=== PATIENT | male | born 1985 | race African-American/Black ===

== ENCOUNTER 2017-03-16 12:34 | Emergency (ER) | payer BC, SELFPAY ==
[2017-03-16] MEDS ORDERED: Nitroglycerin 0.4 MG TAB (25 Tab Bottle) ONE (13:08)
[2017-03-16 13:12] LABS: #Basophils 0.1 thou/uL (0.0-0.2); #Eosinphils 0.1 thou/uL (0.0-0.7); #Lymphocytes 1.5 thou/uL (1.20-3.40); #Monocytes 0.4 thou/uL (0.11-0.59); #Neutrophils 2.7 thou/uL (1.40-6.50); %Eosinophils 1.5 % (0.0-10.0); %Lymphocytes 31.6 % (21.0-51.0); %Monocytes 8.1 % (0.0-10.0); %Neutrophils 56.8 % (42.0-75.0); Hemoglobin 15.3 g/dL (14.0-18.0); Mean Corpuscular HGB CONC 33.2 g/dL (32.0-36.0); Mean Corpuscular Hemoglobin 31.3 pg (27.0-31.0); Mean Corpuscular Volume 94.3 fl (80.0-94.0); Mean Platelet Volume 7.3 fL (7.4-10.4); Platelet Count 179 thou/uL (130-400); RBC Distribution Width 10.8 % (11.5-14.5); Red Blood Cell (RBC) Count 4.89 mill/uL (4.70-6.10); White Blood Cell (WBC) Count 4.8 thou/uL (4.8-10.8)
[2017-03-16 13:27] LABS: ALT (SGPT) 20 U/L (8-55); AST (SGOT) 22 U/L (5-34); Albumin 4.5 g/dL (3.5-5.0); Alkaline Phosphatase 58 U/L (40-150); Anion Gap 15 mmol/L (10-20); BUN (Urea Nitrogen) 14 mg/dL (8.9-20.6); Bilirubin, Total 1.3 mg/dL (0.2-1.2); Calc. Creatinine Clearance 0 mL/min (70-130); Calcium 10.1 mg/dL (7.8-10.44); Carbon Dioxide 27 mmol/L (22-29); Chloride 101 mmol/L (98-107); Estimated GFR-MDRD Greater than 90; Globulin 3.8 g/dL (2.4-3.5); Glucose 89 mg/dL (70-105); Potassium 4.9 mmol/L (3.5-5.1); Protein, Total 8.3 g/dL (6.0-8.3); Sodium 138 mmol/L (136-145)
[2017-03-16 13:28] LABS: CKMB 0.6 ng/mL (0-6.6); Troponin I Less than 0.010 ng/mL (< 0.028)
[2017-03-16] MEDS ORDERED: Ketorolac Tromethamine 30 MG/ML VIAL ONE (14:10)
--- NOTE | 2017-03-16 17:30 | RAD ---
PORTABLE CHEST 03/16/17 An AP portable film at 1245 shows a normal sized heart and clear lungs. There is no infiltrate, effus ion, or pneumothorax. There is no vascular congestion, edema or pleural change. IMPRESSION: No acute thoracic finding. POS: HOME
== END 2017-03-16 14:50 | disposition home or self-care (01) ==
LOC: BURERS 12:34
DX: R07.2 Precordial pain (principal); F17.210 Nicotine dependence, cigarettes, uncomplicated
CPT/HCPCS: 71010; 80053; 82553; 84484; 85025; 85379; 93005; 96374; J1885

== ENCOUNTER 2017-03-17 02:53 | Emergency (ER) | payer SELFPAY ==
[2017-03-17] MEDS ORDERED: Nitroglycerin 2% Ointment 1 INCH/1 GM Packet ONE (03:16)
[2017-03-17] MEDS ORDERED: Tenecteplase 50 MG - STEMI KIT ONE (03:23)
[2017-03-17 03:38] LABS: #Basophils 0.1 thou/uL (0.0-0.2); #Eosinphils 0.1 thou/uL (0.0-0.7); #Lymphocytes 2.7 thou/uL (1.20-3.40); #Monocytes 0.5 thou/uL (0.11-0.59); #Neutrophils 3.2 thou/uL (1.40-6.50); %Basophils 2.2 % (0.0-1.0); %Eosinophils 2.2 % (0.0-10.0); %Lymphocytes 40.1 % (21.0-51.0); %Monocytes 7.9 % (0.0-10.0); %Neutrophils 47.6 % (42.0-75.0); Hemoglobin 14.7 g/dL (14.0-18.0); Mean Corpuscular HGB CONC 33.1 g/dL (32.0-36.0); Mean Corpuscular Hemoglobin 31.2 pg (27.0-31.0); Mean Corpuscular Volume 94.3 fl (80.0-94.0); Mean Platelet Volume 8.4 fL (7.4-10.4); Platelet Count 173 thou/uL (130-400); Red Blood Cell (RBC) Count 4.71 mill/uL (4.70-6.10); White Blood Cell (WBC) Count 6.7 thou/uL (4.8-10.8)
[2017-03-17 03:49] LABS: ALT (SGPT) 16 U/L (8-55); AST (SGOT) 16 U/L (5-34); Albumin 4.2 g/dL (3.5-5.0); Alkaline Phosphatase 61 U/L (40-150); Anion Gap 13 mmol/L (10-20); BUN (Urea Nitrogen) 15 mg/dL (8.9-20.6); Bilirubin, Total 0.5 mg/dL (0.2-1.2); Calc. Creatinine Clearance 0 mL/min (70-130); Calcium 9.4 mg/dL (7.8-10.44); Carbon Dioxide 27 mmol/L (22-29); Chloride 104 mmol/L (98-107); Estimated GFR-MDRD Greater than 90; Globulin 3.4 g/dL (2.4-3.5); Glucose 88 mg/dL (70-105); Potassium 3.8 mmol/L (3.5-5.1); Protein, Total 7.6 g/dL (6.0-8.3); Sodium 140 mmol/L (136-145)
[2017-03-17 03:51] LABS: CKMB 0.5 ng/mL (0-6.6); Troponin I Less than 0.010 ng/mL (< 0.028)
[2017-03-17 04:00] LABS: INR-International Normal Ratio 0.9; Prothrombin Time 12.6 SEC (12.0-14.7)
[2017-03-17 04:01] LABS: PTT 27.8 SEC (22.9-36.1)
--- NOTE | 2017-03-17 07:19 | RAD ---
PORTABLE CHEST: Date: 03/17/17 An AP portable film at 0311 hours is compared with an 03/16/17 study. FINDINGS: The heart remains normal in size and the lungs are clear. No infiltrate, effusion, or vascular conges tion seen. The trachea is midline and the mediastinum appears normal. The bony structures are unremar kable. IMPRESSION: Stable exam showing no acute findings. POS: HOME
== END 2017-03-17 04:25 | disposition short-term general hospital (02) ==
LOC: BURERS 02:53
DX: I21.3 ST elevation (STEMI) myocardial infarction of unspecified site (principal); F17.210 Nicotine dependence, cigarettes, uncomplicated
CPT/HCPCS: 71010; 80053; 82553; 84484; 85025; 85610; 85730; 93005; 96365; 96376; J3101

== ENCOUNTER 2021-10-26 10:05 | Emergency (ER) | payer OTHER ==
[2021-10-26] MEDS ORDERED: Boostrix 0.5 ML (Tdap) VIAL ONE (10:50)
== END 2021-10-26 11:00 | disposition home or self-care (01) ==
LOC: BURERS 10:05
DX: L73.9 Follicular disorder, unspecified (principal); F17.210 Nicotine dependence, cigarettes, uncomplicated; Z23 Encounter for immunization
CPT/HCPCS: 90471; 90715; 99282

== ENCOUNTER 2021-11-05 17:35 | Emergency (ER) | payer SELFPAY | END 2021-11-05 18:49 | disposition home or self-care (01) | LOC: BURERS 17:35 | DX: J02.9 Acute pharyngitis, unspecified (principal) | CPT/HCPCS: 99282 ==

== ENCOUNTER 2022-05-21 09:54 | Emergency (ER) | payer SELFPAY ==
[2022-05-21] MEDS ORDERED: predniSONE 20 MG TAB ONE (11:36)
== END 2022-05-21 11:39 | disposition home or self-care (01) ==
LOC: BURERS 09:54
DX: M54.12 Radiculopathy, cervical region (principal); F17.210 Nicotine dependence, cigarettes, uncomplicated
CPT/HCPCS: 99283; J7512

== ENCOUNTER 2024-03-11 11:15 | Outpatient (CLI) | payer OTHER ==
[~2024-03-11 11:15] MED LIST: Iopamidol 370 76% 100 ML VIAL ONE
== END 2024-03-11 11:16 | disposition home or self-care (01) ==
LOC: BURCT 11:15
PROVIDERS: ATTEND Otolaryngology
DX: Z01.818 Encounter for other preprocedural examination (principal); R13.10 Dysphagia, unspecified; R23.4 Changes in skin texture; R93.89 Abnormal findings on diagnostic imaging of other specified body structures
CPT/HCPCS: 36415; 70491; 82565; Q9967